=== PATIENT | female | born 1975 | race Caucasian/White ===

== ENCOUNTER 2018-09-19 09:52 | Emergency (ER) | payer OTHER ==
[2018-09-19 10:00] VITALS: BP 106/74
--- NOTE | 2018-09-19 11:38 | EDPHY ---
General Time Seen by Provider: 09/19/18 10:20 Narrative: CHIEF COMPLAINT: HISTORY OF PRESENT ILLNESS: Patient presents private vehicle with complaints of left hand wrist pain. She says she was at work last night when she accidentally crushed her hand in a moving wall. She describes a hyperflexion of the wrist. She says that it was moderately painful last night. Located in the fingers of the left hand in the wrist. Radiates into the left forearm. No numbness or tingling or weakness. Worse with patient movement. Improved at rest. No injury elsewhere. No other associated complaints or modifying factors. DOMINANT EXTREMITY: Right-hand dominant ESTABLISHED ORTHOPEDIST: None REVIEW OF SYSTEMS: Ten systems reviewed and are negative unless otherwise noted in the HPI PAST MEDICAL HISTORY: Rheumatoid arthritis PAST SURGICAL HISTORY: No recent surgery SOCIAL HISTORY: Never smoker. Lives independently. FAMILY HISTORY: Noncontributory EXAMINATION: General Appearance: Alert, no distress Cardiovascular: Symmetric radial pulses 2+. Brisk cap refill the fingers of the both hands. Neurological: A&O, light and 2 point sensory symmetric, casing tier and interossei strength symmetric Skin: Warm and dry, no rash. No laceration or puncture. Minimal edema and ecchymosis to the dorsum of the left hand fingers 3. Through 5. Extremities: Mild swelling and tenderness of the fingers on left hand and of the left hand metacarpals. There is no snuffbox tenderness of the left wrist. Mild tenderness of the medial side of the left wrist. Psychiatric: Mood and affect normal DIFFERENTIAL DIAGNOSES: Including but not limited to sprain, strain, fracture, dislocation, subluxation , crush injury, rhabdomyolysis MDM: 10:20 a.m. Acute injury to the left hand and wrist last night described as a hyperflexion and mild crush injury. She has pain in the fingers of the left hand and wrist. She will range the upper extremity out difficulty. There is no signs of compartment syndrome. She is well-appearing with neuro intact upper extremity. X-rays ordered. 11:30 a.m. X-rays negative for acute fracture or injury. Patient re-evaluated. We discussed Velcro thumb spica for protection of her wrist. We discussed ice, elevation anti-inflammatories short course of pain medication. She will follow up with [facility]. Ortho follow-up for definitive care. ED precautions discussed. Discharged stable condition. SUPERVISION: This patient was independently evaluated without direct involvement of or examination by the attending physician. - History Smoking Status: Never smoked - Objective Vital Signs: Initial Vital Signs Temperature (C) 98.4 F 09/19/18 09:56 Heart Rate 82 09/19/18 09:56 Respiratory Rate 18 09/19/18 09:56 Blood Pressure 106/74 09/19/18 09:56 O2 Sat (%) 98 09/19/18 09:56 O2 Delivery Mode Room Air Allergies/Adverse Reactions: Sulfa (Sulfonamide Antibiotics) Allergy (Verified 09/19/18 09:56) Home Medications: Medication Instructions Recorded Phentermine HCl 09/19/18 oxyCODONE HCL/ACETAMINOPHEN 1 each PO Q4-6PRN PRN #5 tablet 09/19/18 [Percocet 5-325 mg Tablet] Departure - Departure Disposition: Home, Routine, Self-Care Clinical Impression: Crushing injury of left hand, initial encounter Left wrist sprain Qualifiers: Encounter type: initial encounter Qualified Code(s): S63.502A - Unspecified sprain of left wrist, initial encounter Condition: Good Instructions: Wrist Sprain (ED), Crush Injury (ED) Additional Instructions: 1. Medications as discussed as needed, including ibuprofen 600mg every 8 hours as needed. Do not take in conjunction with anticoagulants or other NSAIDs 2. Follow up with Orthopedics for definitive care 3. Rest, ice and elevation often. 4. ED precautions as discussed for worsening pain, redness, fever, changes in range of motion, changes in sensation 5. Use your splint as needed. You are weight-bearing as tolerated. Referrals: Roman Sylvester MD [Medical Doctor] - As per Instructions Stand Alone Forms: Work Excuse, Work Comp Follow Up Prescriptions: oxyCODONE HCL/ACETAMINOPHEN [Percocet 5-325 mg Tablet] 1 each PO Q4-6PRN PRN #5 tablet PRN Reason: Pain, Breakthrough
== END 2018-09-19 11:49 | disposition home or self-care (01) ==
LOC: MERGE 09:52
DX: S63.502A Unspecified sprain of left wrist, initial encounter (principal); W23.0XXA Caught, crushed, jammed, or pinched between moving objects, initial encounter; Y92.9 Unspecified place or not applicable; Y93.9 Activity, unspecified; Y99.0 Civilian activity done for income or pay
CPT/HCPCS: L3807